=== PATIENT | female | born 1950 | race Caucasian/White ===

== ENCOUNTER → 2017-01-13 | Outpatient (CLI) | payer OTHER ==
[~2017-01-13] MED LIST: ASPI81TA28 PO; CHOL200010 PO; DIPH1TAB PO; OMEG10007 PO; PRED20TA PO; SERT50TA PO; [UNRECOGNIZED DRUG - OTHER]
[2017-01-13 09:37] LABS: HEMATOCRIT 40.7 % (37-47); MEAN CELL VOLUME 91.1 fL (80-100); MEAN CORPUSCULAR HEMOGLOBIN 30.2 pg (25-34); MEAN CORPUSCULAR HGB CONC 33.2 g/dl (32-36); MEAN PLATELET VOLUME 9.9 fL (7.4-10.4); PLATELET COUNT 188 K/uL (130-400); RED BLOOD COUNT 4.47 M/uL (4.2-5.4); WHITE BLOOD COUNT 3.84 K/uL (4.8-10.8)
[2017-01-13 09:57] LABS: BLOOD UREA NITROGEN 21 mg/dl (7-18); BUN/CREATININE RATIO 28.2 (10-20); CALCIUM 9.1 mg/dl (8.5-10.1); CARBON DIOXIDE 28 mmol/L (21-32); CHLORIDE 105 mmol/L (98-107); CREATININE 0.76 mg/dl (0.60-1.20); GLUCOSE 83 mg/dl (70-99); POTASSIUM 4.1 mmol/L (3.5-5.1); SODIUM 142 mmol/L (136-145); TRIGLYCERIDES 42 mg/dl (0-150)
[2017-01-13 09:58] LABS: CHOLESTEROL 217 mg/dl (0-200); VERY LOW DENSITY LIPOPROT CALC 8 mg/dl
[2017-01-13 10:04] LABS: BASO % 0.5 %; BASO ABS # 0.02 K/uL (0-0.2); COMPLETE YES; EOS % 3.9 %; LYMPH % 51.3 %; LYMPH ABS # 1.97 K/uL (1.2-3.4); MONO % 7.8 %; NEUT % 36.5 %
[2017-01-13 10:05] LABS: CHOLESTEROL/HDL RATIO 2.1; HDL CHOLESTEROL 103 mg/dl; LDL CHOLESTEROL CALCULATED 106 mg/dl
--- NOTE | 2017-01-20 09:01 | CODING QUERY MEDICAL NECESSITY ---
SUPPORTING DIAGNOSIS NEEDED A supporting diagnosis is required for the test/procedure performed on this patient in order for us to be reimbursed by the patient's insurance. Please provide a supporting diagnosis for the following test/procedure listed below next to the test name along with your signature. *If there is no additional diagnosis for this patient that would support the following test/procedure please document that below next to the test/procedure. Test(s)/Procedure(s) that require a supporting diagnosis: * VITAMIN D 25-HYDROXY DIAGNOSIS: * DOS: 01/13/17 Provider Signature: Date: Thank you Nathalie Isbell Health Information Management Once completed, please kindly fax back to [phone] For questions please call [phone]
== END | disposition home or self-care (01) ==
LOC: C.LAB1850 07:24
PROVIDERS: ATTEND Internal Medicine
DX: Z00.00 Encounter for general adult medical examination without abnormal findings (principal); Z11.59 Encounter for screening for other viral diseases; Z13.220 Encounter for screening for lipoid disorders; M45.9 Ankylosing spondylitis of unspecified sites in spine; M85.80 Other specified disorders of bone density and structure, unspecified site

== ENCOUNTER 2017-07-27 08:21 | Emergency (ER) | payer OTHER ==
[~2017-07-27] VITALS: Ht 162.6 cm; Wt 56.2 kg
[~2017-07-27 08:21] MED LIST changes: -ASPI81TA28 PO; -CHOL200010 PO; -DIPH1TAB PO; -OMEG10007 PO; -PRED20TA PO; -SERT50TA PO
[2017-07-27 08:26] VITALS: TEMP 36.6; Ht 162.6 cm; Wt 56.2 kg
[2017-07-27] MEDS ORDERED: OMEG10007 PO (08:47)
[2017-07-27] MEDS ORDERED: ASPI81TA28 PO (08:47)
[2017-07-27] MEDS ORDERED: SERT50TA PO (08:47)
[2017-07-27] MEDS ORDERED: CHOL200010 PO (08:47)
[2017-07-27] MEDS ORDERED: PRED20TA PO (08:55)
[2017-07-27] MEDS ORDERED: DIPH1TAB PO (08:55)
--- NOTE | 2017-07-27 08:57 | EMERGENCY ROOM VISIT NOTE ---
History Report prepared by Jennifer: Deya Mckeon Under the Supervision of: Dr. Anupam Abbott M.D. First contact with patient: 08:42 Chief Complaint: SKIN PROBLEM Stated Complaint: SEVERE INFLMATION, ITCHING, WELTS ALL OVER BODY History of Present Illness The patient is a 67 year old female who presents to the Emergency Room with complaints of a worsening rash to her body that initially began five days ago, but worsened last evening. The patient states that five days ago she noticed erythematous, inflamed, itchy hands. She states that a few days ago she bought an anti-itch cream that slightly helped to alleviate her symptoms. The patient states that last evening the rash and hives spread to her entire body. She denies any change in medications, or new medication, or over the counter medication. The patient denies using any new detergents, soaps, fabric softeners, perfumes, or lotions. She denies any history of diabetes. The patient denies any breathing difficulties or throat tightness. She denies any cough, congestion or fever. The patient states that she had a slightly similar reaction fifty years ago, noting that she had a reaction that developed oozing areas that was related to too much acid. She states that she is on Zoloft, Vitamin D, Fish Oil, and 81 mg of Aspirin daily. Source of History: patient Onset: five days ago Position: other (entire body) Quality: other (rash) Timing: worsening Modifying Factors (Relieving): other (anti-itch cream) Associated Symptoms: No fevers, No cough Review of Systems See HPI for pertinent positives & negatives. A total of 10 systems reviewed and were otherwise negative. Past Medical & Surgical Surgical Problems: (1) H/O bilateral mastectomy (2) H/O: hysterectomy Family History FH: heart disease Hypertension Kidney disease Kidney stones Social History Smoking Status: Never Smoker Smokeless Tobacco Use: No Alcohol Use: none Marital Status: Housing Status: lives with significant other Current/Historical Medications Scheduled Aspirin (Aspirin Ec), 81 MG PO DAILY Cholecalciferol (Vitamin D), 2,000 UNITS PO DAILY Diphenhydramine Hcl (Benadryl Allergy), 2 TAB PO TID Fish Oil ([place]-3), 1 CAP PO DAILY Prednisone (Prednisone), 0 PO DAILY Sertraline Hcl (Zoloft), 50 MG PO DAILY Allergies Coded Allergies: No Known Allergies (Verified , 07/27/17) Physical Exam Vital Signs Date Time Temp Pulse Resp B/P (MAP) Pulse Ox O2 Delivery O2 Flow Rate FiO2 07/27/17 08:26 36.6 72 18 126/80 95 Room Air Physical Exam GENERAL: Patient is in no acute distress. HEENT: No acute trauma, normocephalic atraumatic, mucous membranes moist, no uvular edema or tongue swelling, no nasal congestion, no scleral icterus. NECK: No stridor, no adenopathy, no meningismus, trachea is midline. LUNGS: Clear to auscultation bilaterally, no wheeze, no rhonchi, breath sounds equal. HEART: Without murmurs gallops or rubs, regular rate and rhythm. ABDOMEN: Soft, nontender, bowel sounds positive, no hernias, no peritonitis. EXTREMITIES: No cyanosis or edema, full range of motion of all the joints without pain or difficulty, no signs for acute trauma. NEUROLOGIC: Oriented x 3, no acute motor or sensory deficits, no focal weakness. SKIN: No Jaundice. Raised reddened blanching hive like lesions throughout the skin, predominantly in the warmer areas like the waist and pelvis. Medical Decision & Procedures Medications Administered Medications (Trade) Dose Ordered Sig/Linsey Route Start Time Stop Time Status Last Admin Dose Admin Diphenhydramine HCl (Benadryl Cap) 50 mg NOW ONCE PO 07/27/17 08:45 07/27/17 08:50 DC 07/27/17 08:56 50 MG Prednisone (PredniSONE TAB) 60 mg NOW STAT PO 07/27/17 08:45 07/27/17 08:50 DC 07/27/17 08:57 60 MG ED Course 0843: The patient was evaluated in room B3B. A complete history and physical exam was performed. I discussed the exam findings with her and I discussed the treatment plan. She verbalized complete understanding and agreement. She is ready to go home once she receives her medications. 0845: Ordered Prednisone 60 mg PO, Benadryl Cap 50 mg PO. Medical Decision The patient is a 67 year old female who presents to the ED with complaints of a rash. Differential diagnoses considered include Viral illness, medication reaction, environmental or foodborne allergy, cellulitis, urticaria. The patient presents with an itchy rash. She appears to have hives. No petechiae, no cellulitis. She has no wheezing, there is no uvular edema or throat closing sensation. She looks well. She is not toxic or febrile. This is likely an allergic reaction, the cause is unclear. She is being prescribed Benadryl and prednisone, doses of each were given here orally. She is being discharged with family doctor follow-up. If worsening, she can return. Medication Reconcilliation Current Medication List: was personally reviewed by me Blood Pressure Screening Patient's blood pressure: Normal blood pressure Blood pressure disposition: Did not require urgent referral Impression Primary Impression: Acute allergic reaction Additional Impression: Urticaria Scribe Attestation The scribe's documentation has been prepared under my direction and personally reviewed by me in its entirety. I confirm that the note above accurately reflects all work, treatment, procedures, and medical decision making performed by me. Departure Information Dispostion Home / Self-Care Prescriptions Diphenhydramine Hcl (BENADRYL ALLERGY) 25 Mg Tab 2 TAB PO TID for 5 Days, #30 TABS Prov: Anupam Abbott M.D. 07/27/17 Prednisone (Prednisone) 20 Mg Tab 0 PO DAILY, #14 TAB 3 TABS DAILY FOR 2 DAYS, THEN 2 TABS DAILY FOR 2 DAYS, THEN 1 TAB DAILY FOR 2 DAYS, THEN 1/2 TAB DAILY FOR 2 DAYS. Prov: Anupam Abbott M.D. 07/27/17 Referrals Waylon Reddy M.D. (PCP) Forms HOME CARE DOCUMENTATION FORM, IMPORTANT VISIT INFORMATION Patient Instructions My [facility] Additional Instructions benadryl 2 tab 3x per day for 5 days prednisone as directed avoid hot showers see helene mcgrath for recheck and allergy testing return for worsening symptoms or trouble breathing Problem Qualifiers
[2017-07-27 09:03] VITALS: BP 156/96; PULSE 69; O2SAT 97
== END 2017-07-27 09:04 | disposition home or self-care (01) ==
LOC: C.EDB 08:22
DX: L50.0 Allergic urticaria (principal); Z79.82 Long term (current) use of aspirin; Z79.899 Other long term (current) drug therapy; Z90.10 Acquired absence of unspecified breast and nipple; Z90.710 Acquired absence of both cervix and uterus; Z82.49 Family history of ischemic heart disease and other diseases of the circulatory system; Z84.1 Family history of disorders of kidney and ureter

== ENCOUNTER → 2017-08-06 | Outpatient (CLI) | payer OTHER ==
[~2017-08-06] MED LIST changes: +ASPI81TA28 PO; +CHOL200010 PO; +DIPH1TAB PO; +OMEG10007 PO; +PRED20TA PO; +SERT50TA PO; -[UNRECOGNIZED DRUG - OTHER]
== END | disposition home or self-care (01) ==
LOC: C.MAMM 08:59
PROVIDERS: ATTEND Internal Medicine
DX: M81.0 Age-related osteoporosis without current pathological fracture (principal); M85.859 Other specified disorders of bone density and structure, unspecified thigh

== ENCOUNTER → 2017-10-20 | Outpatient (CLI) | payer OTHER ==
[~2017-10-20] MED LIST changes: -DIPH1TAB PO; +DIPH1TAB87 PO
[2017-10-20 10:12] LABS: CREATININE 0.68 mg/dl (0.60-1.20)
[2017-10-20 11:25] LABS: CALCIUM URINE 14.3 mg/dl
[2017-10-21 17:35] LABS: ALBUMIN 4.2 G/DL (3.8-4.8); GAMMA GLOBULIN 0.8 G/DL (0.8-1.7); TOTAL PROTEIN 6.5 G/DL (6.2-8.3)
== END | disposition home or self-care (01) ==
LOC: C.LAB1850 08:29
PROVIDERS: ATTEND Internal Medicine Rheumatology
DX: M81.0 Age-related osteoporosis without current pathological fracture (principal); E61.8 Deficiency of other specified nutrient elements; E55.9 Vitamin D deficiency, unspecified

== ENCOUNTER → 2017-11-12 | Outpatient (CLI) | payer OTHER | END | disposition home or self-care (01) | LOC: C.MAMM 08:16 | PROVIDERS: ATTEND Internal Medicine Rheumatology | DX: M81.0 Age-related osteoporosis without current pathological fracture (principal); E55.9 Vitamin D deficiency, unspecified; E61.8 Deficiency of other specified nutrient elements; M85.839 Other specified disorders of bone density and structure, unspecified forearm ==

== ENCOUNTER 2017-11-15 12:22 | Emergency (ER) | payer OTHER ==
[~2017-11-15] VITALS: Ht 165.1 cm; Wt 56.5 kg
[2017-11-15 12:28] VITALS: TEMP 36.2; Ht 165.1 cm; Wt 56.5 kg
[2017-11-15] MEDS ORDERED: ACETAMINOPHEN 500 MG TAB PO STA (12:52)
[2017-11-15] MEDS ORDERED: KETOROLAC TROMETHAMINE 30 MG/ML VIAL IV STA (12:52)
[2017-11-15] MEDS ORDERED: ONDANSETRON INJ 2 MG/ML 2 ML VIAL IV STA (12:52)
[2017-11-15 12:53] VITALS: O2SAT 97
--- NOTE | 2017-11-15 12:56 | EMERGENCY ROOM VISIT NOTE ---
History Report prepared by Jennifer: Chriss Cao Under the Supervision of: Dr. René Romo M.D. First contact with patient: 12:29 Chief Complaint: CARDIAC ASSESSMENT Stated Complaint: ACUTE DISCOMFORT IN UPPER L CHEST AND BACK History of Present Illness The patient is a 67 year old white female with a past medical history of a bilateral mastectomy, hysterectomy who presents to the ED with a cc of constant left sided chest heaviness beginning two days ago. Pt was in a kickboxing class at the gym before this started. She tried ibuprofen and Tylenol, but they did not help. Pt reports her heaviness interferes with her sleep. She notes her pain radiates to her back. Pt is right handed. Positive heaviness radiating to back and LUE. Negative history of DM, HTN, HLD, blood clots in legs or lungs, heaviness radiating to other shoulder, worsening symptoms with exertion, SOB, recent surgery, abdominal pain, swelling in legs, nausea, vomiting, sweating, over use of right hand. Pt takes a small dose of Zoloft daily. Source of History: patient Onset: two days ago Position: chest (left) Quality: other (heaviness) Timing: constant Associated Symptoms: No SOB, No nausea, No vomiting, No abdominal pain Note: Associated symptoms; heaviness radiating to back and LUE Denies: sweating, heaviness radiating to other shoulder Review of Systems See HPI for pertinent positives and negatives. A total of ten systems were reviewed and were otherwise negative. Past Medical & Surgical Surgical Problems: (1) H/O bilateral mastectomy (2) H/O: hysterectomy Family History FH: heart disease Hypertension Kidney disease Kidney stones Social History Smoking Status: Never Smoker Alcohol Use: none Marital Status: Housing Status: lives with significant other Current/Historical Medications Scheduled Aspirin (Aspirin Ec), 81 MG PO DAILY Cholecalciferol (Vitamin D), 2,000 UNITS PO DAILY Fish Oil ([place]-3), 1 CAP PO DAILY Sertraline Hcl (Zoloft), 50 MG PO DAILY Allergies Coded Allergies: No Known Allergies (Verified , 11/15/17) Physical Exam Vital Signs Date Time Temp Pulse Resp B/P (MAP) Pulse Ox O2 Delivery O2 Flow Rate FiO2 11/15/17 15:31 74 16 117/83 99 Room Air 11/15/17 14:50 65 16 152/92 98 Room Air 11/15/17 13:51 64 22 138/88 100 Room Air 11/15/17 13:16 64 11/15/17 12:53 97 Room Air 11/15/17 12:41 98 Room Air 11/15/17 12:35 98 Room Air 11/15/17 12:28 36.2 76 16 134/78 98 Room Air Physical Exam GENERAL: Awake, alert, well-appearing, NAD HENT: Normocephalic, atraumatic. EYES: Normal conjunctiva. Sclera non-icteric. NECK: Supple. No nuchal rigidity. FROM. RESPIRATORY: CTAB, no rhonchi, wheezing, crackles CARDIAC: RRR, no MRG ABDOMEN: Soft, NTND, BS+ MSK: No chest wall TTP, no LE edema. No reproducible anterior chest TTP. No reproducible pain with the UE movement. NEURO: GCS 15, CN 2-12 intact, moves all 4s on command SKIN: No rash or jaundice noted. Medical Decision & Procedures ER Provider Diagnostic Interpretation: X-ray: Per my interpretation, radiologist review. CHEST ONE VIEW PORTABLE CLINICAL HISTORY: Left upper chest and back pain. COMPARISON STUDY: No previous studies for comparison. FINDINGS: There are suspected bilateral breast implants. Lung volumes are normal. No pneumothorax or pleural effusion is noted. Pulmonary vascularity is normal. No consolidation is identified. Cardiomediastinal silhouette is normal. IMPRESSION: No acute cardiopulmonary findings. Electronically signed by: Boby Tillman M.D. 11/15/2017 1:29 PM Dictated Date/Time: 11/15/2017 1:28 PM Laboratory Results 11/15/17 12:50 Red Blood Count 4.55, Mean Corpuscular Volume 90.1, Mean Corpuscular Hemoglobin 30.5, Mean Corpuscular Hemoglobin Concent 33.9, Mean Platelet Volume 9.8, Neutrophils (%) (Auto) 59.7, Lymphocytes (%) (Auto) 31.1, Monocytes (%) (Auto) 7.6, Eosinophils (%) (Auto) 0.9, Basophils (%) (Auto) 0.5, Neutrophils # (Auto) 2.61, Lymphocytes # (Auto) 1.36, Monocytes # (Auto) 0.33, Eosinophils # (Auto) 0.04, Basophils # (Auto) 0.02 1/7/18 12:50 Test 11/15/17 12:50 11/15/17 14:50 White Blood Count 4.37 K/uL (4.8-10.8) Red Blood Count 4.55 M/uL (4.2-5.4) Hemoglobin 13.9 g/dL (12.0-16.0) Hematocrit 41.0 % (37-47) Mean Corpuscular Volume 90.1 fL (80-100) Mean Corpuscular Hemoglobin 30.5 pg (25-34) Mean Corpuscular Hemoglobin Concent 33.9 g/dl (32-36) Platelet Count 202 K/uL (130-400) Mean Platelet Volume 9.8 fL (7.4-10.4) Neutrophils (%) (Auto) 59.7 % Lymphocytes (%) (Auto) 31.1 % Monocytes (%) (Auto) 7.6 % Eosinophils (%) (Auto) 0.9 % Basophils (%) (Auto) 0.5 % Neutrophils # (Auto) 2.61 K/uL (1.4-6.5) Lymphocytes # (Auto) 1.36 K/uL (1.2-3.4) Monocytes # (Auto) 0.33 K/uL (0.11-0.59) Eosinophils # (Auto) 0.04 K/uL (0-0.5) Basophils # (Auto) 0.02 K/uL (0-0.2) RDW Standard Deviation 44.7 fL (36.4-46.3) RDW Coefficient of Variation 13.6 % (11.5-14.5) Immature Granulocyte % (Auto) 0.2 % Immature Granulocyte # (Auto) 0.01 K/uL (0.00-0.02) Prothrombin Time 10.7 SECONDS (9.0-12.0) Prothromb Time International Ratio 1.0 (0.9-1.1) Activated Partial Thromboplast Time 27.5 SECONDS (21.0-31.0) Partial Thromboplastin Ratio 1.1 Anion Gap 5.0 mmol/L (3-11) Est Creatinine Clear Calc Drug Dose 57.3 ml/min Estimated GFR () 82.2 Estimated GFR (Non- 70.9 BUN/Creatinine Ratio 18.5 (10-20) Calcium Level 9.3 mg/dl (8.5-10.1) Total Bilirubin 0.7 mg/dl (0.2-1) Direct Bilirubin 0.2 mg/dl (0-0.2) Aspartate Amino Transf (AST/SGOT) 15 U/L (15-37) Alanine Aminotransferase (ALT/SGPT) 20 U/L (12-78) Alkaline Phosphatase 69 U/L (45-117) Pro-B-Type Natriuretic Peptide 122 pg/ml (0-900) Total Protein 7.5 gm/dl (6.4-8.2) Albumin 3.9 gm/dl (3.4-5.0) Lipase 213 U/L (73-393) Troponin I < 0.015 ng/ml (0-0.045) Laboratory results reviewed by me Medications Administered Medications (Trade) Dose Ordered Sig/Linsey Route Start Time Stop Time Status Last Admin Dose Admin Ondansetron HCl (Zofran Inj) 4 mg NOW STAT IV 11/15/17 12:52 11/15/17 12:53 DC 11/15/17 12:56 4 MG Acetaminophen (Tylenol Tab) 1,000 mg NOW STAT PO 11/15/17 12:52 11/15/17 12:53 DC 11/15/17 12:56 1,000 MG Ketorolac Tromethamine (Toradol Inj) 30 mg NOW STAT IV 11/15/17 12:52 11/15/17 12:53 DC 11/15/17 12:57 30 MG ECG Indication: chest pain Rate (beats per minute): 66 Rhythm: normal sinus Findings: T-wave inversion (Single inversion in V2), other (Normal axis, normal interval, no other STS changes or TWI) ED Course 1236: The patient was evaluated in room A10. A complete history and physical exam was performed. 1338: I reevaluated the patient. I discussed her current exam findings. She does not want to stay and has elected to receive a repeat troponin. 1503: I reevaluated the patient and told her that she will be discharged if her repeat troponin is negative. Medical Decision The patient is a 67 year old white female with a past medical history of a bilateral mastectomy, hysterectomy who presents to the ED with a cc of constant left sided chest heaviness beginning two days ago. Differential diagnosis: Etiologies such as cardiac ischemia, aortic dissection, pulmonary embolism, pneumonia, pneumothorax, musculoskeletal, infections, pericarditis, myocarditis , esophageal rupture, gastrointestinal, as well as others were entertained. Patient was seen and evaluated the bedside. Patient has complained of some left sided achy heavy type chest pain. Patient states that is nonexertional. Patient did state that she thought this all started after taking a kickboxing class which was slightly new for her. Patient denies any diaphoresis, nausea, vomiting. Patient did take some Motrin and Tylenol with mild improvement. Patient denies any lower extremity swelling or history of DVT or PE. Patient did have blood work completed along with EKG, troponin, chest x-ray. Patient chest x-ray clear. Patient's EKG just so a single T-wave inversion in lead V2. No other changes. We did discuss with the patient that while this is more likely related to the kickboxing we did elect to do a repeat troponin. Patient' s other blood work was fairly unremarkable. Patient was told that regardless she is follow-up with her PCP within the week. Patient's repeat troponin was undetectable. Patient was given strict follow-up and return precautions. Patient does have a heart score of 3 shows make her suitable for outpatient follow-up and treatment and given the chronicity of her symptoms with negative troponin 2 less likely ACS. Patient was deemed suitable for outpatient follow- up and treatment.Patient was given strict follow-up, discharge, and return precautions. All questions were answered. Patient was deemed suitable for outpatient follow-up at this time. Patient agreed with the plan of care and was safely discharged home. Medication Reconcilliation Current Medication List: was personally reviewed by me Blood Pressure Screening Patient's blood pressure: Elevated blood pressure Blood pressure disposition: Elevated BP felt to be situational Impression Primary Impression: Chest discomfort Scribe Attestation The scribe's documentation has been prepared under my direction and personally reviewed by me in its entirety. I confirm that the note above accurately reflects all work, treatment, procedures, and medical decision making performed by me. Departure Information Dispostion Home / Self-Care Referrals No Doctor, Assigned (PCP) Forms IMPORTANT VISIT INFORMATION Patient Instructions Chest Pain - [facility], My [facility] Additional Instructions Please return to the emergency department if you have worsening or recurrent symptoms not amenable to at-home treatment. Please call for a follow-up appointment with her primary care physician. Please take your medications as prescribed. If you have other concerns and/or complaints please feel free to also call your primary care physician's office or return the ED for further evaluation, management, and treatment. Please follow-up with your primary care physician if you have recurrent chest pain. Please return to the emergency department if you have any symptoms or warning signs that we discussed. You may take 400 mg Ibuprofen every 6 hours as needed for pain with food for no more than 2 consecutive days. You may take tylenol 650 mg every 6 hours as needed for pain. You may take motrin and tylenol separately or at the same time. Take your medications as prescribed. You have been examined and treated today on an emergency basis only. This is not a substitute for, or an effort to provide, complete comprehensive medical care. It is impossible to recognize and treat all injuries or illnesses in a single emergency department visit. It is therefore important that you follow up closely with [facility], your PCP, and/or your specialist(s). Call as soon as possible for an appointment. Thank you for your time and consideration. I look forward to speaking with you again soon. Please don't hesitate to call us if you have any questions.
[2017-11-15 13:08] LABS: BASO % 0.5 %; BASO ABS # 0.02 K/uL (0-0.2); EOS % 0.9 %; EOS ABS # 0.04 K/uL (0-0.5); HEMOGLOBIN 13.9 g/dL (12.0-16.0); IG# 0.01 K/uL (0.00-0.02); LYMPH % 31.1 %; LYMPH ABS # 1.36 K/uL (1.2-3.4); MEAN CELL VOLUME 90.1 fL (80-100); MEAN CORPUSCULAR HEMOGLOBIN 30.5 pg (25-34); MEAN CORPUSCULAR HGB CONC 33.9 g/dl (32-36); MEAN PLATELET VOLUME 9.8 fL (7.4-10.4); MONO % 7.6 %; MONO ABS # 0.33 K/uL (0.11-0.59); NEUT % 59.7 %; NEUT ABS # 2.61 K/uL (1.4-6.5); PLATELET COUNT 202 K/uL (130-400); RED CELL DISTRIBUTION WIDTH CV 13.6 % (11.5-14.5); RED CELL DISTRIBUTION WIDTH SD 44.7 fL (36.4-46.3); WHITE BLOOD COUNT 4.37 K/uL (4.8-10.8)
[2017-11-15 13:21] LABS: ALBUMIN 3.9 gm/dl (3.4-5.0); ALT/SGPT 20 U/L (12-78); AST/SGOT 15 U/L (15-37); BLOOD UREA NITROGEN 16 mg/dl (7-18); CALCIUM 9.3 mg/dl (8.5-10.1); CARBON DIOXIDE 27 mmol/L (21-32); CREATININE 0.85 mg/dl (0.60-1.20); GLUCOSE 109 mg/dl (70-99); LIPASE 213 U/L (73-393); SODIUM 138 mmol/L (136-145)
[2017-11-15 13:26] LABS: ALKALINE PHOSPHATASE 69 U/L (45-117); TOTAL PROTEIN 7.5 gm/dl (6.4-8.2)
--- NOTE | 2017-11-15 13:30 | DIAGNOSTIC IMAGING REPORT ---
CHEST ONE VIEW PORTABLE CLINICAL HISTORY: Left upper chest and back pain. COMPARISON STUDY: No previous studies for comparison. FINDINGS: There are suspected bilateral breast implants. Lung volumes are normal. No pneumothorax or pleural effusion is noted. Pulmonary vascularity is normal. No consolidation is identified. Cardiomediastinal silhouette is normal. IMPRESSION: No acute cardiopulmonary findings. Electronically signed by: Boby Tillman M.D. 11/15/2017 1:29 PM Dictated Date/Time: 11/15/2017 1:28 PM
[2017-11-15 13:31] LABS: PTT PATIENT 27.5 SECONDS (21.0-31.0)
[2017-11-15 15:31] VITALS: BP 117/83; PULSE 74; O2SAT 99
== END 2017-11-15 15:33 | disposition home or self-care (01) ==
LOC: C.EDB 12:23 → C.EDA 15:33
DX: R07.89 Other chest pain (principal); R94.31 Abnormal electrocardiogram [ECG] [EKG]; R03.0 Elevated blood-pressure reading, without diagnosis of hypertension; Z90.13 Acquired absence of bilateral breasts and nipples; Z79.82 Long term (current) use of aspirin; Z82.49 Family history of ischemic heart disease and other diseases of the circulatory system; Z84.1 Family history of disorders of kidney and ureter

== ENCOUNTER → 2017-12-15 | Outpatient (CLI) | payer OTHER ==
[~2017-12-15] MED LIST changes: -DIPH1TAB87 PO; -PRED20TA PO
[2017-12-15 09:30] LABS: BASO % 0.6 %; BASO ABS # 0.03 K/uL (0-0.2); HEMATOCRIT 41.7 % (37-47); HEMOGLOBIN 13.8 g/dL (12.0-16.0); IG# 0.01 K/uL (0.00-0.02); LYMPH % 45.1 %; LYMPH ABS # 2.25 K/uL (1.2-3.4); MEAN CELL VOLUME 92.3 fL (80-100); MEAN CORPUSCULAR HEMOGLOBIN 30.5 pg (25-34); MEAN CORPUSCULAR HGB CONC 33.1 g/dl (32-36); MEAN PLATELET VOLUME 10.1 fL (7.4-10.4); MONO % 8.6 %; MONO ABS # 0.43 K/uL (0.11-0.59); NEUT % 41.5 %; NEUT ABS # 2.07 K/uL (1.4-6.5); PLATELET COUNT 184 K/uL (130-400); RED CELL DISTRIBUTION WIDTH CV 13.9 % (11.5-14.5); RED CELL DISTRIBUTION WIDTH SD 46.5 fL (36.4-46.3); WHITE BLOOD COUNT 4.99 K/uL (4.8-10.8)
[2017-12-15 09:51] LABS: ALBUMIN 3.8 gm/dl (3.4-5.0); ALT/SGPT 17 U/L (12-78); AST/SGOT 14 U/L (15-37); BLOOD UREA NITROGEN 24 mg/dl (7-18); CALCIUM 8.7 mg/dl (8.5-10.1); CARBON DIOXIDE 30 mmol/L (21-32); GLUCOSE 84 mg/dl (70-99); POTASSIUM 3.9 mmol/L (3.5-5.1); SODIUM 139 mmol/L (136-145)
[2017-12-15 10:03] LABS: ALKALINE PHOSPHATASE 58 U/L (45-117); CHOLESTEROL 213 mg/dl (0-200); LDL CHOLESTEROL CALCULATED 104 mg/dl; TOTAL PROTEIN 7.3 gm/dl (6.4-8.2)
== END | disposition home or self-care (01) ==
LOC: C.LAB1850 08:01
PROVIDERS: ATTEND Internal Medicine
DX: M45.9 Ankylosing spondylitis of unspecified sites in spine (principal); F43.20 Adjustment disorder, unspecified; Z13.220 Encounter for screening for lipoid disorders